=== PATIENT | male | born 1960 | race Caucasian/White ===

== ENCOUNTER 2017-08-26 14:30 | Emergency (ER) | payer SELFPAY ==
[~2017-08-26] VITALS: Ht 170.2 cm; Wt 106.0 kg
[~2017-08-26 14:30] MED LIST: CEPH500C PO; IBUP-1459 PO; NAPR1TAB9 PO; OXYC-57 PO
[2017-08-26 14:36] VITALS: TEMP 36.5; O2SAT 95; Ht 170.2 cm; Wt 106.0 kg
[2017-08-26] MEDS ORDERED: SODIUM CHLORIDE 0.9% 1000ML 1,000 ML IV STA (14:41)
[2017-08-26 14:50] LABS: BASO % 0.3 %; BASO ABS # 0.03 K/uL (0-0.2); COMPLETE YES; HEMATOCRIT 50.9 % (42-52); IG% 0.2 %; LYMPH % 27.5 %; LYMPH ABS # 2.69 K/uL (1.2-3.4); MEAN CELL VOLUME 83.9 fL (80-100); MEAN CORPUSCULAR HEMOGLOBIN 30.6 pg (25-34); MEAN CORPUSCULAR HGB CONC 36.5 g/dl (32-36); MEAN PLATELET VOLUME 11.1 fL (7.4-10.4); MONO % 5.4 %; NEUT % 65.6 %; PLATELET COUNT 249 K/uL (130-400); RED BLOOD COUNT 6.07 M/uL (4.7-6.1); WHITE BLOOD COUNT 9.79 K/uL (4.8-10.8)
[2017-08-26 14:59] LABS: PARTIAL THROMBOPLASTIN RATIO 0.9; PROTHROMBIN TIME (PATIENT) 10.4 SECONDS (9.0-12.0)
[2017-08-26 15:08] LABS: ALT/SGPT 37 U/L (12-78); AST/SGOT 23 U/L (15-37); BLOOD UREA NITROGEN 14 mg/dl (7-18); BUN/CREATININE RATIO 13.2 (10-20); CALCIUM 8.9 mg/dl (8.5-10.1); CARBON DIOXIDE 25 mmol/L (21-32); CHLORIDE 106 mmol/L (98-107); CREATININE 1.06 mg/dl (0.60-1.40); GLUCOSE 116 mg/dl (70-99); MAGNESIUM 2.4 mg/dl (1.8-2.4); POTASSIUM 3.6 mmol/L (3.5-5.1); SODIUM 137 mmol/L (136-145)
[2017-08-26] MEDS ORDERED: IBUP-1050 PO (15:16)
[2017-08-26] MEDS ORDERED: OMEG10007 PO (15:16)
[2017-08-26 15:18] LABS: ALKALINE PHOSPHATASE 66 U/L (45-117); CKMB/CK RATIO 0.9 (0-3.0)
--- NOTE | 2017-08-26 15:44 | DIAGNOSTIC IMAGING REPORT ---
CHEST ONE VIEW PORTABLE CLINICAL HISTORY: Altered mental status. Weakness. COMPARISON STUDY: Chest radiograph February 05, 2013. FINDINGS: Lung volumes are normal. There is no consolidation or evidence of pulmonary edema. There is moderate enlargement of the cardiac silhouette. Pulmonary vascularity is normal. IMPRESSION: 1. No acute pulmonary findings. 2. Mild enlargement of the cardiac silhouette. Electronically signed by: Kris Leblanc M.D. 08/26/2017 3:43 PM Dictated Date/Time: 08/26/2017 3:42 PM
[2017-08-26 16:05] LABS: URINE APPEARANCE CLEAR (CLEAR); URINE BILIRUBIN NEG (NEG); URINE COLOR DK YELLOW; URINE NITRITE NEG (NEG); URINE PH 5.5 (4.5-7.5); URINE SPECIFIC GRAVITY 1.021 (1.000-1.030); UROBILINOGEN NEG (NEG)
[2017-08-26 16:08] LABS: MANUAL MICROSCOPIC REQUIRED? NO; REVIEW REQ? NO
[2017-08-26 16:39] VITALS: BP 136/91; PULSE 77; O2SAT 97
--- NOTE | 2017-08-26 16:44 | EMERGENCY ROOM VISIT NOTE ---
History Report prepared by Luchoibadriana: Aly Galvan Under the Supervision of: Dr. Bob Peña D.O. First contact with patient: 14:33 Chief Complaint: SYNCOPE Stated Complaint: SYNCOPE History of Present Illness The patient is a 56 year old male who presents to the Emergency Room with complaints of a syncopal episode occurring just prior to arrival. He was at [facility] when he began feeling nauseous. He states that he went to the bathroom and defecated, and then passed out while walking out of the store. The patient is unsure how long he was unconscious for. He states that he vomited after waking up. He states that he felt totally normal today. The patient currently denies any SOB, back pain, weakness, headache, or neck pain. He states that he has been eating and drinking normally over the past few days. Source of History: patient Onset: Just prior to arrival Quality: other (syncope) Timing: other (episode) Associated Symptoms: + nausea, + vomiting, No headache, No neck pain, No SOB , No back pain Review of Systems See HPI for pertinent positives & negatives. A total of 10 systems reviewed and were otherwise negative. Past Medical & Surgical Medical Problems: (1) No Known Active Medical Problems Surgical Problems: (1) Hx of cholecystectomy Family History No pertinent family history stated. Social History Alcohol Use: none Occupation Status: employed Current/Historical Medications Scheduled Fish Oil (Minto-3), 1 CAP PO DAILY Scheduled PRN Ibuprofen (Advil), 800 MG PO BID PRN for Headache or Pain Allergies Coded Allergies: No Known Allergies (Unverified , 02/05/13) Physical Exam Vital Signs Date Time Temp Pulse Resp B/P (MAP) Pulse Ox O2 Delivery O2 Flow Rate FiO2 08/26/17 16:39 77 18 136/91 97 08/26/17 15:24 72 20 120/77 95 Room Air 80 122/79 83 133/78 08/26/17 14:43 77 08/26/17 14:36 36.5 77 14 132/94 95 Room Air 08/26/17 14:36 95 Room Air Physical Exam GENERAL: Patient is awake, alert, and in no acute distress. Patient is resting comfortably and showing no signs of anxiety EYES: The conjunctivae are clear. The pupils are round and reactive. EARS, NOSE, MOUTH AND THROAT: The nose is without any evidence of any deformity. Mucous membranes are moist tongue is midline NECK: The neck is nontender and supple. RESPIRATORY: Normal respiratory effort is noted there is no evidence of wheezing rhonchi or rales CARDIOVASCULAR: Regular rate and rhythm noted there no murmurs rubs or gallops normal S1 normal S2 GASTROINTESTINAL: The abdomen is soft. Bowel sounds are present in all quadrants. Abdomen is nontender BACK: No midline tenderness or or step-off noted range of motion in flexion extension as well as rotation no signs of muscle spasm noted MUSCULOSKELETAL/EXTREMITIES: There is no evidence of gross deformity full range of motion is noted in the hips and shoulders SKIN: There is no obvious evidence of any rash. There are no petechiae, pallor or cyanosis noted. NEUROLOGIC: Patient is awake alert and oriented x3 strength is symmetric patellar reflexes are 2+ bilaterally Medical Decision & Procedures ER Provider Diagnostic Interpretation: Radiology results as stated below per my review and radiologist interpretation: CHEST ONE VIEW PORTABLE FINDINGS: Lung volumes are normal. There is no consolidation or evidence of pulmonary edema. There is moderate enlargement of the cardiac silhouette. Pulmonary vascularity is normal. IMPRESSION: 1. No acute pulmonary findings. 2. Mild enlargement of the cardiac silhouette. Electronically signed by: Kris Leblanc M.D. 08/26/2017 3:43 PM Laboratory Results 08/26/17 14:40 Red Blood Count 6.07, Mean Corpuscular Volume 83.9, Mean Corpuscular Hemoglobin 30.6, Mean Corpuscular Hemoglobin Concent 36.5, Mean Platelet Volume 11.1, Neutrophils (%) (Auto) 65.6, Lymphocytes (%) (Auto) 27.5, Monocytes (%) (Auto) 5.4, Eosinophils (%) (Auto) 1.0, Basophils (%) (Auto) 0.3, Neutrophils # (Auto) 6.42, Lymphocytes # (Auto) 2.69, Monocytes # (Auto) 0.53, Eosinophils # (Auto) 0.10, Basophils # (Auto) 0.03 08/26/17 14:40 Test 08/26/17 14:40 08/26/17 15:40 White Blood Count 9.79 K/uL (4.8-10.8) Red Blood Count 6.07 M/uL (4.7-6.1) Hemoglobin 18.6 g/dL (14.0-18.0) Hematocrit 50.9 % (42-52) Mean Corpuscular Volume 83.9 fL (80-100) Mean Corpuscular Hemoglobin 30.6 pg (25-34) Mean Corpuscular Hemoglobin Concent 36.5 g/dl (32-36) Platelet Count 249 K/uL (130-400) Mean Platelet Volume 11.1 fL (7.4-10.4) Neutrophils (%) (Auto) 65.6 % Lymphocytes (%) (Auto) 27.5 % Monocytes (%) (Auto) 5.4 % Eosinophils (%) (Auto) 1.0 % Basophils (%) (Auto) 0.3 % Neutrophils # (Auto) 6.42 K/uL (1.4-6.5) Lymphocytes # (Auto) 2.69 K/uL (1.2-3.4) Monocytes # (Auto) 0.53 K/uL (0.11-0.59) Eosinophils # (Auto) 0.10 K/uL (0-0.5) Basophils # (Auto) 0.03 K/uL (0-0.2) RDW Standard Deviation 39.7 fL (36.4-46.3) RDW Coefficient of Variation 13.1 % (11.5-14.5) Immature Granulocyte % (Auto) 0.2 % Immature Granulocyte # (Auto) 0.02 K/uL (0.00-0.02) Prothrombin Time 10.4 SECONDS (9.0-12.0) Prothromb Time International Ratio 1.0 (0.9-1.1) Activated Partial Thromboplast Time 23.7 SECONDS (21.0-31.0) Partial Thromboplastin Ratio 0.9 Anion Gap 6.0 mmol/L (3-11) Est Creatinine Clear Calc Drug Dose 88.2 ml/min Estimated GFR () 89.2 Estimated GFR (Non- 77.0 BUN/Creatinine Ratio 13.2 (10-20) Calcium Level 8.9 mg/dl (8.5-10.1) Magnesium Level 2.4 mg/dl (1.8-2.4) Total Bilirubin 1.0 mg/dl (0.2-1) Direct Bilirubin 0.2 mg/dl (0-0.2) Aspartate Amino Transf (AST/SGOT) 23 U/L (15-37) Alanine Aminotransferase (ALT/SGPT) 37 U/L (12-78) Alkaline Phosphatase 66 U/L (45-117) Total Creatine Kinase 87 U/L (39-308) Creatine Kinase MB 0.8 ng/ml (0.5-3.6) Creatine Kinase MB Ratio 0.9 (0-3.0) Troponin I < 0.015 ng/ml (0-0.045) Total Protein 7.8 gm/dl (6.4-8.2) Albumin 4.0 gm/dl (3.4-5.0) Thyroid Stimulating Hormone (TSH) 2.480 uIu/ml (0.300-4.500) Urine Color DK YELLOW Urine Appearance CLEAR (CLEAR) Urine pH 5.5 (4.5-7.5) Urine Specific [place] 1.021 (1.000-1.030) Urine Protein NEG (NEG) Urine Glucose (UA) NEG (NEG) Urine Ketones NEG (NEG) Urine Occult Blood NEG (NEG) Urine Nitrite NEG (NEG) Urine Bilirubin NEG (NEG) Urine Urobilinogen NEG (NEG) Urine Leukocyte Esterase NEG (NEG) Laboratory results per my review. Medications Administered Medications (Trade) Dose Ordered Sig/Vitor Route Start Time Stop Time Status Last Admin Dose Admin Sodium Chloride 1,000 ml @ 999 mls/hr Q1H1M STAT IV 08/26/17 14:41 08/26/17 15:41 DC 08/26/17 14:47 999 MLS/HR ECG Indication: syncope Rate (beats per minute): 80 Rhythm: sinus rhythm Findings: 1st degree AV block, no ectopy Comparison ECG Date: 02/06/2014 Change: no significant change ED Course 1435: The patient was evaluated in room B4B. A complete history and physical examination were performed. 1441: Ordered NSS 1,000 ml @ 999 mls/hr IV. 1635: Upon reevaluation, the patient is resting comfortably. I discussed the results and treatment plan with him. He verbalized agreement of the treatment plan. The patient was discharged home. Medical Decision Differential diagnosis: Etiologies such as vasovagal event, infection, hypoglycemia, electrolyte abnormalities, cardiac sources, intracerebral event, toxicologic, neurologic, as well as others were entertained. Nursing notes reviewed. The patient is a 56-year-old male who presented to the emergency department for an evaluation after having a single episode. The patient states after he ate he started having abdominal cramping and then went to the bathroom. After this he had a syncopal episode while he was walking. The patient has no complaints at this time. He has no focal neurologic deficits. He was treated with IV fluids in the emergency department and was feeling much better. I discussed the patient 's laboratory and radiographic studies with him. He was found have an elevated hemoglobin in the emergency department. I'm unsure if this represents his volume status and he could be dehydrated or if this is a primary polycythemia. He was encouraged to rest and avoid any strenuous activity. He was also encouraged to continue all medications as prescribed and drink plenty clear liquids. I recommend repeat laboratory studies with his primary care physician this week as well as a discussion with his primary care physician that he may require further studies such as an echocardiogram and a Holter monitor to further evaluate the cause of symptoms. Medication Reconcilliation Current Medication List: was personally reviewed by me Blood Pressure Screening Patient's blood pressure: Normal blood pressure Blood pressure disposition: Did not require urgent referral Impression Primary Impression: Syncope Additional Impression: Polycythemia Scribe Attestation The scribe's documentation has been prepared under my direction and personally reviewed by me in its entirety. I confirm that the note above accurately reflects all work, treatment, procedures, and medical decision making performed by me. Departure Information Dispostion Home / Self-Care Referrals No Doctor, Assigned (PCP) Forms HOME CARE DOCUMENTATION FORM, IMPORTANT VISIT INFORMATION Patient Instructions My [facility] Additional Instructions Call your family to schedule follow-up appointment. You may require further studies such as an echocardiogram and a Holter monitor to further evaluate the cause of your passing out episode. I would also recommend repeat laboratory studies to check the status of your hemoglobin. It was elevated today in the emergency department. Return to the emergency department immediately if symptoms change worsen or the need arises. Drink plenty clear liquids. Problem Qualifiers Primary Impression: Syncope Syncope type: unspecified Qualified Codes: R55 - Syncope and collapse
== END 2017-08-26 16:41 | disposition home or self-care (01) ==
LOC: EDBD 14:30 → C.EDB 14:31
DX: R55 Syncope and collapse (principal); D75.1 Secondary polycythemia